=== PATIENT | female | born 1945 | race Caucasian/White ===

== ENCOUNTER 2016-08-27 08:20 | Day surgery (SDC) | payer MEDICARE, MEDICAID ==
[2016-08-25 12:15] LABS: ASPARTATE AMINO TRANSFERASE 17 U/L (15-37); BLOOD UREA NITROGEN 16 mg/dL (7-18)
[~2016-08-27] VITALS: Ht 177.8 cm; Wt 63.0 kg
[~2016-08-27 08:20] MED LIST: ASPI-496 PO; ATOR20TA PO; DIGO125T PO; ERGO500017 PO; LISI5TAB7 PO; METF500T4 PO; METO25TA91 PO; SPIR25TA3 PO
[2016-08-27] MEDS ORDERED: LACTATED RINGERS 1,000 ML IV SCH (08:47)
[2016-08-27 09:17] VITALS: BP 135/77
== END 2016-08-27 09:44 | disposition home or self-care (01) ==
LOC: OUT 08:20
PROVIDERS: ATTEND Orthopaedic Surgery
DX: Z53.8 Procedure and treatment not carried out for other reasons (principal)
CPT/HCPCS: 36415; 80053; 82962; 93005; J7120

== ENCOUNTER 2016-09-24 11:08 | Day surgery (SDC) | payer MEDICARE, MEDICAID ==
[~2016-09-24] VITALS: Ht 177.8 cm; Wt 61.7 kg
[~2016-09-24 11:08] MED LIST changes: +BUPIVACAINE/PF 0.5% ONE
[2016-09-24] MEDS ORDERED: FENTANYL PF 100 MCG/2ML ONE (11:34)
[2016-09-24] MEDS ORDERED: MIDAZOLAM 1 MG/ML, 2ML ONE (11:34)
[2016-09-24 11:54] VITALS: BP 121/81
[2016-09-24] MEDS ORDERED: LACTATED RINGERS 1,000 ML IV SCH (12:29)
[2016-09-24] MEDS ORDERED: BUPIVACAINE/PF 0.5% ONE (12:45)
[2016-09-24] MEDS ORDERED: LIDOCAINE/PF 1%, 30ML ONE (12:46)
[2016-09-24] MEDS ORDERED: PROPOFOL 10 MG/ML, 20ML ONE (12:53)
[2016-09-24] MEDS ORDERED: CEFAZOLIN 1,000 MG ONE (12:53)
[2016-09-24] MEDS ORDERED: OXYcodone 5 MG/5 ML ORAL.SOL UDC PO PRN (13:30)
[2016-09-24] MEDS ORDERED: ONDANSETRON 2MG/ML, 2ML IVPush PRN (13:30)
[2016-09-24] MEDS ORDERED: HYDROmorphone 1 MG/ML, 1ML IV PRN (13:30)
[2016-09-24] MEDS ORDERED: FENTANYL PF 100 MCG/2ML IV PRN (13:30)
[2016-09-24] MEDS ORDERED: OXYcodone 5 MG/5 ML ORAL.SOL UDC ONE (13:59)
== END 2016-09-24 15:15 ==
LOC: OUT 11:08
PROVIDERS: ATTEND Orthopaedic Surgery
DX: M86.672 Other chronic osteomyelitis, left ankle and foot (principal); M86.671 Other chronic osteomyelitis, right ankle and foot; M20.5X1 Other deformities of toe(s) (acquired), right foot; E11.69 Type 2 diabetes mellitus with other specified complication; L89.894 Pressure ulcer of other site, stage 4; Z79.84 Long term (current) use of oral hypoglycemic drugs; I10 Essential (primary) hypertension; Z79.82 Long term (current) use of aspirin; Z79.899 Other long term (current) drug therapy
CPT/HCPCS: 28010; 28820; 82962; 87070; 87075; 87077; 87102; 87147; 87186; 87205; 88305; J0690; J2704; J3010; J3490; J7120; J2250

== ENCOUNTER → 2016-11-25 | Outpatient (CLI) | payer MEDICARE, MEDICAID ==
[~2016-11-25] MED LIST changes: -BUPIVACAINE/PF 0.5% ONE
== END | disposition home or self-care (01) ==
LOC: WOUND 09:45
PROVIDERS: ATTEND Podiatrist Foot & Ankle Surgery
DX: E11.621 Type 2 diabetes mellitus with foot ulcer (principal); L97.521 Non-pressure chronic ulcer of other part of left foot limited to breakdown of skin; L97.511 Non-pressure chronic ulcer of other part of right foot limited to breakdown of skin; I11.0 Hypertensive heart disease with heart failure; I50.9 Heart failure, unspecified; E78.5 Hyperlipidemia, unspecified; F03.90 Unspecified dementia, unspecified severity, without behavioral disturbance, psychotic disturbance, mood disturbance, and anxiety; Z89.422 Acquired absence of other left toe(s)
CPT/HCPCS: 11043; 11046; G0463; WOU0463

== ENCOUNTER → 2016-12-02 | Outpatient (CLI) | payer MEDICARE, MEDICAID | END | disposition home or self-care (01) | LOC: WOUND 08:10 | PROVIDERS: ATTEND Podiatrist Foot & Ankle Surgery | DX: E11.621 Type 2 diabetes mellitus with foot ulcer (principal); L97.521 Non-pressure chronic ulcer of other part of left foot limited to breakdown of skin; L97.511 Non-pressure chronic ulcer of other part of right foot limited to breakdown of skin; I11.0 Hypertensive heart disease with heart failure; I50.9 Heart failure, unspecified; E78.5 Hyperlipidemia, unspecified; M19.072 Primary osteoarthritis, left ankle and foot; F03.90 Unspecified dementia, unspecified severity, without behavioral disturbance, psychotic disturbance, mood disturbance, and anxiety; Z89.432 Acquired absence of left foot | CPT/HCPCS: 11044; 11047 ==

== ENCOUNTER → 2016-12-02 | Outpatient (CLI) | payer MEDICARE, MEDICAID | END | disposition home or self-care (01) | LOC: CFH 09:37 | PROVIDERS: ATTEND Podiatrist Foot & Ankle Surgery | DX: M19.072 Primary osteoarthritis, left ankle and foot (principal); Q66.89 Other specified congenital deformities of feet; M25.871 Other specified joint disorders, right ankle and foot; E11.621 Type 2 diabetes mellitus with foot ulcer; Z89.432 Acquired absence of left foot ==

== ENCOUNTER → 2016-12-29 | Outpatient (CLI) | payer MEDICARE, MEDICAID | END | disposition home or self-care (01) | LOC: CVU 12:04 | PROVIDERS: ATTEND Podiatrist Foot & Ankle Surgery | DX: E11.621 Type 2 diabetes mellitus with foot ulcer (principal); L97.513 Non-pressure chronic ulcer of other part of right foot with necrosis of muscle; I73.9 Peripheral vascular disease, unspecified; S91.302A Unspecified open wound, left foot, initial encounter; S91.301A Unspecified open wound, right foot, initial encounter; X58.XXXA Exposure to other specified factors, initial encounter; Y93.89 Activity, other specified; Y92.89 Other specified places as the place of occurrence of the external cause; Y99.8 Other external cause status | CPT/HCPCS: 93922; 93925; 93970 ==